=== PATIENT | male | born 1955 | race Caucasian/White ===

== ENCOUNTER 2019-02-06 15:04 | Emergency (ER) | payer MEDICAID ==
[~2019-02-06] VITALS: Ht 160 cm; Wt 81.0 kg
[2019-02-06] MEDS ORDERED: CLOP75TA33 PO (15:23)
[2019-02-06] MEDS ORDERED: METF-815 PO (15:23)
[2019-02-06] MEDS ORDERED: RANI15SY PO (15:23)
[2019-02-06] MEDS ORDERED: ATORVASTATIN (15:23)
[2019-02-06] MEDS ORDERED: ESCITALOPRAM (15:23)
[2019-02-06] MEDS ORDERED: HYDR25TA PO (15:23)
[2019-02-06] MEDS ORDERED: LOSA50TA41 PO (15:23)
[2019-02-06] MEDS ORDERED: ASPI-1393 PO (15:23)
[2019-02-06] MEDS ORDERED: AMLO10TA80 PO (15:23)
[2019-02-06] MEDS ORDERED: HYDR-4134 PO (15:23)
[2019-02-06] MEDS ORDERED: CEFTRIAXONE 1 G PREMIX 50 ML IV ONE (17:15)
[2019-02-06] MEDS ORDERED: SODIUM CHLORIDE 0.9% 1000ML BAG (SEPSIS BOLUS) IV ONE (17:15)
[2019-02-06 18:30] LABS: PROTHROMBIN TIME 10.2 sec (9.6-11.0)
[2019-02-06 18:31] LABS: BASOPHILS % 0.4 % (0.0-2.0); CHLORIDE 117 mEq/L (98-107); CLARITY URINE TURBID (CLEAR); COLOR URINE ORANGE (YELLOW); EOSINOPHILS % 2.7 % (0.0-5.0); HEMATOCRIT. 34.4 % (42.0-52.0); HEMOGLOBIN. 11.5 g/dL (14.0-18.0); KETONES URINE NEGATIVE (NEGATIVE); LEUKOCYTE ESTERASE URINE 3+ (NEGATIVE); LYMPHOCYTES % 15.1 % (20.0-50.0); MEAN CORPUSCULAR HEMOGLOBIN 29.2 pg (28.0-32.0); MEAN CORPUSCULAR VOLUME 87.3 fL (80.0-94.0); MEAN PLATELET VOLUME 7.8 fl (7.4-10.4); NEUTROPHILS % 74.8 % (40.0-76.0); NITRITE URINE POSITIVE (NEGATIVE); OCCULT BLOOD URINE 3+ (NEGATIVE); PLATELET 289 x1000/uL (130-400); PROTEIN URINE 2+ (NEGATIVE); RED BLOOD CELL COUNT 3.94 mill/uL (4.7-6.1); RED CELL DISTRIBUTION WIDTH 15.5 % (11.6-14.6); SPECIFIC GRAVITY URINE 1.013 (1.005-1.030); UROBILINOGEN URINE 0.2 E.U./dL (0.2-1.0)
[2019-02-06 22:34] VITALS: BP 143/92
== END 2019-02-06 22:40 | disposition home or self-care (01) ==
LOC: EDBD 15:04 → ER 15:04 → CANBEDREQ 22:54
DX: N39.0 Urinary tract infection, site not specified (principal); Z43.6 Encounter for attention to other artificial openings of urinary tract; R78.9 Finding of unspecified substance, not normally found in blood; I69.351 Hemiplegia and hemiparesis following cerebral infarction affecting right dominant side
CPT/HCPCS: 36415; 51702; 71045; 80053; 81003; 83605; 84145; 84484; 85025; 85610; 87040; 87077; 87086; 87186; 93005; 96365; 99284; J0696; J7030

== ENCOUNTER 2019-08-16 13:32 | Emergency (ER) | payer MEDICAID ==
[~2019-08-16] VITALS: Ht 170.2 cm; Wt 65.0 kg
[~2019-08-16 13:32] MED LIST: AMLO10TA80 PO; ASPI-1393 PO; ATORVASTATIN; CLOP75TA33 PO; ESCITALOPRAM; HYDR-4134 PO; HYDR25TA PO; LOSA50TA41 PO; METF-815 PO; RANI15SY PO
[2019-08-16 17:01] LABS: BASOPHILS % 0.7 % (0.0-2.0); HEMATOCRIT. 29.8 % (42.0-52.0); HEMOGLOBIN. 9.8 g/dL (14.0-18.0); LYMPHOCYTES % 20.2 % (20.0-50.0); MEAN CORPUSCULAR HEMOGLOBIN 27.8 pg (28.0-32.0); MEAN CORPUSCULAR VOLUME 84.2 fL (80.0-94.0); MEAN PLATELET VOLUME 7.2 fl (7.4-10.4); MONOCYTES % 6.3 % (2.0-8.0); NEUTROPHILS % 68.8 % (40.0-76.0); PLATELET 320 x1000/uL (130-400); RED BLOOD CELL COUNT 3.54 mill/uL (4.7-6.1); RED CELL DISTRIBUTION WIDTH 17.3 % (11.6-14.6)
[2019-08-16 17:05] LABS: CHLORIDE 116 mEq/L (98-107)
[2019-08-16 18:58] VITALS: BP 115/60
== END 2019-08-16 18:59 | disposition home or self-care (01) ==
LOC: ER 13:32
DX: T83.028A Displacement of other urinary catheter, initial encounter (principal); Y73.8 Miscellaneous gastroenterology and urology devices associated with adverse incidents, not elsewhere classified; Y92.89 Other specified places as the place of occurrence of the external cause; Z74.01 Bed confinement status; I69.398 Other sequelae of cerebral infarction
CPT/HCPCS: 36415; 51702; 80048; 85025; 99284; Z7610

== ENCOUNTER 2019-10-04 18:45 | Inpatient (IN) | payer MEDICAID ==
[~2019-10-04] VITALS: Ht 165.1 cm; Wt 72.6 kg
[~2019-10-04 18:45] MED LIST changes: -ASPI-1393 PO; +ASPI-1497 PO; -ATORVASTATIN; +ATORVASTATIN PO; -ESCITALOPRAM; +ESCITALOPRAM PO
[2019-10-04] MEDS ORDERED: MULT-1146 PO (18:57)
[2019-10-04 20:25] LABS: HEMATOCRIT. 28.1 % (42.0-52.0); HEMOGLOBIN. 9.1 g/dL (14.0-18.0); MEAN CORPUSCULAR HEMOGLOBIN 26.4 pg (28.0-32.0); MEAN CORPUSCULAR VOLUME 81.9 fL (80.0-94.0); MEAN PLATELET VOLUME 7.1 fl (7.4-10.4); PLATELET 444 x1000/uL (130-400); RED BLOOD CELL COUNT 3.43 mill/uL (4.7-6.1); RED CELL DISTRIBUTION WIDTH 17.3 % (11.6-14.6)
[2019-10-04 20:31] LABS: CHLORIDE 111 mEq/L (98-107)
[2019-10-04] MEDS ORDERED: CEFTRIAXONE 1 G PREMIX 50 ML IV ONE (21:15)
[2019-10-04] MEDS ORDERED: SODIUM CHLORIDE 0.9% 1,000 ML IV ONE ×2 (21:15→21:45)
[2019-10-04] MEDS ORDERED: DILTIAZEM HCL 5MG/ML 5ML VIAL IV ONE (21:45)
[2019-10-04] MEDS ORDERED: ASPIRIN 81MG TABLET PO ONE (21:45)
[2019-10-04] MEDS ORDERED: CALCIUM GLUCONATE 1000MG in DEXTROSE 5% WATER 50ML IV ONE (22:15)
[2019-10-04] MEDS ORDERED: CALCIUM GLUCONATE 100MG/ML 10ML VIAL IV ONE (22:15)
[2019-10-04 22:19] LABS: PLATELET ESTIMATE INCREASED
[2019-10-04 23:01] LABS: CLARITY URINE CLOUDY (CLEAR); COLOR URINE ORANGE (YELLOW); KETONES URINE NEGATIVE (NEGATIVE); LEUKOCYTE ESTERASE URINE 2+ (NEGATIVE); NITRITE URINE NEGATIVE (NEGATIVE); OCCULT BLOOD URINE 3+ (NEGATIVE); PH URINE >=9.0 (4.5-8.0); PROTEIN URINE 3+ (NEGATIVE); SPECIFIC GRAVITY URINE 1.013 (1.005-1.030); UROBILINOGEN URINE 0.2 E.U./dL (0.2-1.0)
[2019-10-05] VITALS (15 sets, daily range): BP systolic 86–127; BP diastolic 56–77
[2019-10-05] MEDS ORDERED: DEXTROSE 50% WATER 50ML SYRINGE IV PRN (02:00)
[2019-10-05] MEDS: SODIUM CHLORIDE 0.9% 1,000 ML IV SCH ×2 (02:46→14:34)
[2019-10-05] MEDS: DILTIAZEM HCL 30MG TABLET PO SCH ×3 (06:00→14:28)
[2019-10-05] MEDS: BLOOD SUGAR DIAGNOSTIC STRIP TEST SCH ×4 (06:29→21:00)
[2019-10-05] MEDS: NYSTATIN 100,000 UNITS/ML 5ML UDC SSW SCH ×3 (06:31→22:30)
[2019-10-05 06:59] LABS: HEMATOCRIT. 25.4 % (42.0-52.0); HEMOGLOBIN. 8.2 g/dL (14.0-18.0); MEAN CORPUSCULAR HEMOGLOBIN 26.7 pg (28.0-32.0); MEAN CORPUSCULAR VOLUME 82.9 fL (80.0-94.0); MEAN PLATELET VOLUME 7.6 fl (7.4-10.4); PLATELET 341 x1000/uL (130-400); RED BLOOD CELL COUNT 3.06 mill/uL (4.7-6.1); RED CELL DISTRIBUTION WIDTH 17.6 % (11.6-14.6)
[2019-10-05] MEDS: INSULIN LISPRO 100 UNITS/ML SUBCUT SCH ×4 (07:20→21:00)
[2019-10-05 07:49] LABS: CHLORIDE 115 mEq/L (98-107)
[2019-10-05] MEDS ORDERED: PNEUMOCOCCAL 23-VAL P-SAC VAC 0.5 ML IM ONE (08:00)
[2019-10-05] MEDS: MULTIVITAMINS,THER W-MINERALS TABLET PO SCH (08:45)
[2019-10-05] MEDS: ASPIRIN 81MG TABLET PO SCH (08:45)
[2019-10-05] MEDS: CLOPIDOGREL 75MG TABLET PO SCH (08:45)
[2019-10-05] MEDS ORDERED: METFORMIN HCL 500 MG PO SCH (09:00)
[2019-10-05] MEDS: CEFTRIAXONE 1 G PREMIX 50 ML IV SCH (21:00)
[2019-10-05 21:56] LABS: PLATELET ESTIMATE NORMAL
[2019-10-06] VITALS (15 sets, daily range): BP systolic 112–129; BP diastolic 58–77
[2019-10-06] MEDS: SODIUM CHLORIDE 0.9% 1,000 ML IV SCH ×2 (04:00→17:44)
[2019-10-06] MEDS: DILTIAZEM HCL 30MG TABLET PO SCH ×5 (06:51→23:40)
[2019-10-06] MEDS: NYSTATIN 100,000 UNITS/ML 5ML UDC SSW SCH ×3 (06:51→21:20)
[2019-10-06] MEDS: INSULIN LISPRO 100 UNITS/ML SUBCUT SCH ×4 (07:20→21:00)
[2019-10-06] MEDS: BLOOD SUGAR DIAGNOSTIC STRIP TEST SCH ×4 (07:37→21:22)
[2019-10-06] MEDS: ASPIRIN 81MG TABLET PO SCH (08:46)
[2019-10-06] MEDS: MULTIVITAMINS,THER W-MINERALS TABLET PO SCH (08:46)
[2019-10-06] MEDS: CLOPIDOGREL 75MG TABLET PO SCH (08:46)
[2019-10-06 13:30] LABS: MEAN CORPUSCULAR HEMOGLOBIN 26.9 pg (28.0-32.0); MEAN CORPUSCULAR VOLUME 80.8 fL (80.0-94.0); MEAN PLATELET VOLUME 7.6 fl (7.4-10.4); PLATELET 308 x1000/uL (130-400); RED BLOOD CELL COUNT 2.97 mill/uL (4.7-6.1); RED CELL DISTRIBUTION WIDTH 17.3 % (11.6-14.6)
[2019-10-06 13:40] LABS: CHLORIDE 113 mEq/L (98-107)
[2019-10-06 13:50] LABS: LDL CHOLESTEROL 30 mg/dL (5-100)
[2019-10-06 13:51] LABS: CREATINE KINASE 86 IU/L (39-308)
[2019-10-06 13:52] LABS: HDL CHOLESTEROL 36 mg/dL (40-59); T4 FREE 1.34 ng/dL (0.76-1.46)
[2019-10-06 13:55] LABS: CREATINE KINASE MB FRACTION 2.9 ng/mL (0.5-3.6)
[2019-10-06 14:19] LABS: PLATELET ESTIMATE NORMAL
[2019-10-06] MEDS ORDERED: ACETAMINOPHEN 650MG/20.3ML UDC PO PRN (15:30)
[2019-10-06] MEDS: CEFTRIAXONE 1 G PREMIX 50 ML IV SCH (21:20)
[2019-10-06 23:32] LABS: CREATINE KINASE 60 IU/L (39-308)
[2019-10-06 23:33] LABS: CREATINE KINASE MB FRACTION 2.1 ng/mL (0.5-3.6)
[2019-10-07] VITALS (16 sets, daily range): BP systolic 101–134; BP diastolic 54–83
[2019-10-07] MEDS: SODIUM CHLORIDE 0.9% 1,000 ML IV SCH ×2 (03:52→15:30)
[2019-10-07] MEDS: NYSTATIN 100,000 UNITS/ML 5ML UDC SSW SCH ×3 (06:31→21:30)
[2019-10-07] MEDS: DILTIAZEM HCL 30MG TABLET PO SCH ×4 (06:32→23:05)
[2019-10-07] MEDS: BLOOD SUGAR DIAGNOSTIC STRIP TEST SCH ×4 (06:35→21:33)
[2019-10-07] MEDS: INSULIN LISPRO 100 UNITS/ML SUBCUT SCH ×4 (06:36→21:00)
[2019-10-07 08:00] LABS: CREATINE KINASE 49 IU/L (39-308)
[2019-10-07 08:01] LABS: CREATINE KINASE MB FRACTION 1.9 ng/mL (0.5-3.6)
[2019-10-07] MEDS: MULTIVITAMINS,THER W-MINERALS TABLET PO SCH (09:16)
[2019-10-07] MEDS: ASPIRIN 81MG TABLET PO SCH (09:16)
[2019-10-07] MEDS: CLOPIDOGREL 75MG TABLET PO SCH (09:16)
[2019-10-07] MEDS ORDERED: LEVO500T2 MT (13:54)
[2019-10-07] MEDS ORDERED: DILT120C88 MT (13:56)
[2019-10-07] MEDS: CEFTRIAXONE 1 G PREMIX 50 ML IV SCH (21:30)
[2019-10-08] VITALS (12 sets, daily range): BP systolic 110–128; BP diastolic 53–70
[2019-10-08] MEDS: SODIUM CHLORIDE 0.9% 1,000 ML IV SCH ×2 (05:00→17:26)
[2019-10-08] MEDS: NYSTATIN 100,000 UNITS/ML 5ML UDC SSW SCH ×2 (06:23→14:00)
[2019-10-08] MEDS: DILTIAZEM HCL 30MG TABLET PO SCH ×3 (06:23→17:27)
[2019-10-08] MEDS: BLOOD SUGAR DIAGNOSTIC STRIP TEST SCH ×3 (06:26→17:08)
[2019-10-08] MEDS: INSULIN LISPRO 100 UNITS/ML SUBCUT SCH ×3 (06:26→17:26)
[2019-10-08] MEDS: ASPIRIN 81MG TABLET PO SCH (09:36)
[2019-10-08] MEDS: CLOPIDOGREL 75MG TABLET PO SCH (09:36)
[2019-10-08] MEDS: MULTIVITAMINS,THER W-MINERALS TABLET PO SCH (09:37)
== END 2019-10-08 18:52 | disposition home or self-care (01) | DRG 720 ==
LOC: ER 18:45 → 3WST 21:34 → ENRESERV 22:53
PROVIDERS: ADMIT Family Medicine; ATTEND Family Medicine
DX: A41.9 Sepsis, unspecified organism (principal); N17.0 Acute kidney failure with tubular necrosis; E11.22 Type 2 diabetes mellitus with diabetic chronic kidney disease; E44.1 Mild protein-calorie malnutrition; I48.91 Unspecified atrial fibrillation; D64.9 Anemia, unspecified; E78.5 Hyperlipidemia, unspecified; I25.10 Atherosclerotic heart disease of native coronary artery without angina pectoris; N39.0 Urinary tract infection, site not specified; I12.9 Hypertensive chronic kidney disease with stage 1 through stage 4 chronic kidney disease, or unspecified chronic kidney disease; N18.9 Chronic kidney disease, unspecified; T83.098A Other mechanical complication of other urinary catheter, initial encounter; Y84.6 Urinary catheterization as the cause of abnormal reaction of the patient, or of later complication, without mention of misadventure at the time of the procedure; R53.1 Weakness; Z95.5 Presence of coronary angioplasty implant and graft; I25.2 Old myocardial infarction; Y92.89 Other specified places as the place of occurrence of the external cause; Z86.73 Personal history of transient ischemic attack (TIA), and cerebral infarction without residual deficits
CPT/HCPCS: 36415; 71045; 80048; 80053; 80061; 81003; 82550; 82553; 82962; 83036; 83880; 84439; 84443; 84484; 85025; 85379; 87077; 87186; 87804; 90732; 93005; 93306; 93970; 99291; J0610; J0696; J1815; J3490; J7030; J7060

== ENCOUNTER 2019-10-10 14:30 | Emergency (ER) | payer MEDICAID ==
[~2019-10-10] VITALS: Ht 167.6 cm; Wt 68.0 kg
[~2019-10-10 14:30] MED LIST changes: -AMLO10TA80 PO; +DILT120C88 MT; -HYDR-4134 PO; -HYDR25TA PO; +LEVO500T2 MT; -LOSA50TA41 PO; -METF-815 PO; +MULT-1146 PO; -RANI15SY PO
[2019-10-10 15:20] LABS: BASOPHILS % 0.6 % (0.0-2.0); HEMATOCRIT. 25.4 % (42.0-52.0); HEMOGLOBIN. 8.3 g/dL (14.0-18.0); LYMPHOCYTES % 11.5 % (20.0-50.0); MEAN CORPUSCULAR HEMOGLOBIN 26.8 pg (28.0-32.0); MEAN CORPUSCULAR VOLUME 81.8 fL (80.0-94.0); MEAN PLATELET VOLUME 7.3 fl (7.4-10.4); MONOCYTES % 6.9 % (2.0-8.0); PLATELET 324 x1000/uL (130-400); RED CELL DISTRIBUTION WIDTH 17.3 % (11.6-14.6)
[2019-10-10 15:25] LABS: CHLORIDE 115 mEq/L (98-107)
[2019-10-10 15:53] LABS: CLARITY URINE TURBID (CLEAR); COLOR URINE YELLOW (YELLOW); KETONES URINE NEGATIVE (NEGATIVE); LEUKOCYTE ESTERASE URINE 3+ (NEGATIVE); NITRITE URINE POSITIVE (NEGATIVE); OCCULT BLOOD URINE 3+ (NEGATIVE); PROTEIN URINE 2+ (NEGATIVE); SPECIFIC GRAVITY URINE 1.011 (1.005-1.030); UROBILINOGEN URINE 0.2 E.U./dL (0.2-1.0)
[2019-10-10 16:33] VITALS: BP 123/66
== END 2019-10-10 16:38 | disposition home or self-care (01) ==
LOC: ER 14:44
DX: T83.038A Leakage of other urinary catheter, initial encounter (principal); N40.0 Benign prostatic hyperplasia without lower urinary tract symptoms; N30.90 Cystitis, unspecified without hematuria; E11.9 Type 2 diabetes mellitus without complications; E78.00 Pure hypercholesterolemia, unspecified; I10 Essential (primary) hypertension; I25.2 Old myocardial infarction; Z86.73 Personal history of transient ischemic attack (TIA), and cerebral infarction without residual deficits; Z98.890 Other specified postprocedural states; Z79.899 Other long term (current) drug therapy; Y92.89 Other specified places as the place of occurrence of the external cause
CPT/HCPCS: 36415; 51702; 80053; 81003; 85025; 99283; 99284

== ENCOUNTER 2020-01-28 16:30 | Emergency (ER) | payer MEDICAID ==
[~2020-01-28] VITALS: Ht 167.6 cm; Wt 68.0 kg
[2020-01-28 16:40] VITALS: BP 139/73
[2020-01-28 21:55] LABS: CLARITY URINE CLOUDY (CLEAR); COLOR URINE YELLOW (YELLOW); KETONES URINE NEGATIVE (NEGATIVE); LEUKOCYTE ESTERASE URINE 3+ (NEGATIVE); NITRITE URINE POSITIVE (NEGATIVE); OCCULT BLOOD URINE 3+ (NEGATIVE); PROTEIN URINE 1+ (NEGATIVE); SPECIFIC GRAVITY URINE 1.017 (1.005-1.030); UROBILINOGEN URINE 0.2 E.U./dL (0.2-1.0)
== END 2020-01-28 19:12 | disposition home or self-care (01) ==
LOC: ER 16:30
DX: T83.038A Leakage of other urinary catheter, initial encounter (principal); N40.1 Benign prostatic hyperplasia with lower urinary tract symptoms; R33.8 Other retention of urine; N39.0 Urinary tract infection, site not specified; Y73.8 Miscellaneous gastroenterology and urology devices associated with adverse incidents, not elsewhere classified; Y92.018 Other place in single-family (private) house as the place of occurrence of the external cause; I10 Essential (primary) hypertension; E11.9 Type 2 diabetes mellitus without complications; E78.00 Pure hypercholesterolemia, unspecified; I25.2 Old myocardial infarction; Z86.73 Personal history of transient ischemic attack (TIA), and cerebral infarction without residual deficits
CPT/HCPCS: 51702; 81003; 87077; 87186; 99283; 99284

== ENCOUNTER 2020-04-18 17:56 | Emergency (ER) | payer MEDICAID ==
[~2020-04-18] VITALS: Ht 165.1 cm; Wt 93.8 kg
[2020-04-18 17:58] VITALS: BP 134/89
[2020-04-18] MEDS ORDERED: ZIPRASIDONE MESYLATE 20MG/VIAL IM ONE (18:15)
[2020-04-18] MEDS ORDERED: OLANZAPINE 10 MG/VIAL IM ONE (18:15)
[2020-04-18 19:29] LABS: CLARITY URINE CLOUDY (CLEAR); COLOR URINE YELLOW (YELLOW); KETONES URINE NEGATIVE (NEGATIVE); LEUKOCYTE ESTERASE URINE 3+ (NEGATIVE); NITRITE URINE POSITIVE (NEGATIVE); OCCULT BLOOD URINE 2+ (NEGATIVE); PROTEIN URINE 1+ (NEGATIVE); SPECIFIC GRAVITY URINE 1.015 (1.005-1.030); UROBILINOGEN URINE 0.2 E.U./dL (0.2-1.0)
[2020-04-18] MEDS ORDERED: CEFTRIAXONE SODIUM 250 MG/VIAL IM NR (20:30)
== END 2020-04-18 21:50 | disposition home or self-care (01) ==
LOC: ER 17:56
DX: T83.098A Other mechanical complication of other urinary catheter, initial encounter (principal); N39.0 Urinary tract infection, site not specified; E78.00 Pure hypercholesterolemia, unspecified; I10 Essential (primary) hypertension; E11.9 Type 2 diabetes mellitus without complications; I25.2 Old myocardial infarction; Z86.73 Personal history of transient ischemic attack (TIA), and cerebral infarction without residual deficits; Z98.890 Other specified postprocedural states; Z79.899 Other long term (current) drug therapy; Z79.82 Long term (current) use of aspirin; Y92.89 Other specified places as the place of occurrence of the external cause
CPT/HCPCS: 51702; 81003; 87077; 87086; 87186; 96372; 99284; J0696

== ENCOUNTER 2020-08-13 14:25 | Emergency (ER) | payer MEDICAID ==
[~2020-08-13] VITALS: Ht 165.1 cm; Wt 87.0 kg
[2020-08-13 17:35] LABS: CLARITY URINE CLEAR (CLEAR); COLOR URINE YELLOW (YELLOW); KETONES URINE NEGATIVE (NEGATIVE); LEUKOCYTE ESTERASE URINE 3+ (NEGATIVE); NITRITE URINE POSITIVE (NEGATIVE); OCCULT BLOOD URINE 3+ (NEGATIVE); PH URINE 6.5 (4.5-8.0); PROTEIN URINE 1+ (NEGATIVE); SPECIFIC GRAVITY URINE 1.016 (1.005-1.030); UROBILINOGEN URINE 0.2 E.U./dL (0.2-1.0)
[2020-08-13 19:00] VITALS: BP 132/92
== END 2020-08-13 20:24 | disposition home or self-care (01) ==
LOC: ER 14:25
DX: N39.0 Urinary tract infection, site not specified (principal); I10 Essential (primary) hypertension; E11.9 Type 2 diabetes mellitus without complications; Z48.813 Encounter for surgical aftercare following surgery on the respiratory system; Z48.01 Encounter for change or removal of surgical wound dressing; Z86.73 Personal history of transient ischemic attack (TIA), and cerebral infarction without residual deficits; Z79.899 Other long term (current) drug therapy; Z98.890 Other specified postprocedural states
CPT/HCPCS: 81003; 99284

== ENCOUNTER 2020-11-17 16:55 | Emergency (ER) | payer MEDICAID ==
[~2020-11-17] VITALS: Ht 172.7 cm; Wt 100.0 kg
[2020-11-17 19:01] VITALS: BP 141/75
== END 2020-11-17 19:29 | disposition home or self-care (01) ==
LOC: ER 16:55
DX: Z46.6 Encounter for fitting and adjustment of urinary device (principal); N39.0 Urinary tract infection, site not specified; R33.8 Other retention of urine; E11.9 Type 2 diabetes mellitus without complications
CPT/HCPCS: 51702; 93005; 99284